=== PATIENT | female | born 1970 | race Hispanic/Latino ===

== ENCOUNTER 2023-01-18 11:52 | Observation (INO) | payer BC, OTHER ==
[~2023-01-18] VITALS: Ht 175.3 cm; Wt 105.7 kg
[2023-01-18 15:09] LABS: HEMATOCRIT 40.3 % (36-48); MEAN CORPUSCULAR HEMOGLOBIN 30.3 pg (27.0-33.0); MEAN CORPUSCULAR HGB CONC 33.7 g/dL (32.0-36.0); MEAN CORPUSCULAR VOLUME 89.8 fL (79-99); PLATELET COUNT (AUTO) 330 K/uL (130-400); RED BLOOD CELL COUNT(AUTO) 4.49 MIL/uL (4.00-5.50); RED CELL DISTRIBUTION WIDTH 13.4 % (11.0-15.5); WHITE BLOOD COUNT (AUTO) 6.4 K/uL (4.8-10.8)
[2023-01-18 15:38] LABS: ALBUMIN 3.6 g/dL (3.5-5.0); BILIRUBIN,DIRECT 4.4 mg/dL (0.0-0.3); BILIRUBIN,TOTAL 7.8 mg/dL (0.2-1.0); CREATININE 0.9 mg/dL (0.5-1.5); POTASSIUM 3.1 mmol/L (3.5-5.1); THYROID STIMULATING HORMONE 5.62 uIU/mL (0.36-3.74); TOTAL PROTEIN, SERUM 7.8 g/dL (6.0-8.3)
[2023-01-18 16:03] LABS: LYMPHOCYTES % (MANUAL) 38 % (22-44); MAN.DIFF COMMENT-IMPRESSION MANUAL DIFFERENTIAL; MONOCYTES % (MANUAL) 5 % (2-9); SEGMENTED NEUTROPHILS % 57 % (40-70); TOTAL CELLS COUNTED 100; WBC MORPHOLOGY SMUDGE CELLS 1+
[2023-01-18 16:04] LABS: PLATELET MORPHOLOGY COMMENT ADEQUATE
[2023-01-18] MEDS: 1/2 NS 1000ML 1,000 ML IV SCH (17:27)
[2023-01-18] MEDS ORDERED: GLUCAGON 1MG KIT 1 MG ML IM PRN (17:30)
[2023-01-18] MEDS ORDERED: DEXTROSE 50%-WATER 50 ML DISP.SYRIN IV PRN (17:30)
[2023-01-18 18:10] VITALS: BP 138/78; PULSE 88; RESP 17
[2023-01-18 19:33] VITALS: O2SAT 0
[2023-01-18] MEDS ORDERED: SIMV40TA59 PO (19:47)
[2023-01-18] MEDS ORDERED: METO-391 PO (19:47)
[2023-01-18] MEDS ORDERED: LEVO137C4 PO (19:47)
[2023-01-18] MEDS ORDERED: TELM20TA8 PO (19:47)
[2023-01-18] MEDS ORDERED: NPH,100V SQ (19:58)
[2023-01-18] MEDS ORDERED: INSU100V3 SQ (19:58)
[2023-01-18 20:24] VITALS: BP 154/78; PULSE 94; RESP 20
[2023-01-18] MEDS: INSULIN HUMULIN R 100 UNIT/ML 3ML SQ SCH ×2 (20:39→20:52)
[2023-01-18] MEDS: ATORVASTATIN 20 MG TABLET PO SCH (20:39)
[2023-01-18] MEDS: METOPROLOL SUCCINATE 50 MG TAB.SR.24H PO SCH (20:39)
[2023-01-18] MEDS ORDERED: AEC81 PO (20:54)
[2023-01-18] MEDS ORDERED: NON-FORMULARY MEDICATION 1 EACH (Simvastatin (Zocor) 40 MG) PO SCH (21:00)
[2023-01-18] MEDS: INSULIN NPH 100 UNIT/ML 3ML SQ SCH (21:17)
[2023-01-18 23:53] VITALS: BP 135/62; PULSE 87; RESP 18
[2023-01-19 03:54] LABS: BASOPHILS # (AUTO) 0.04 K/uL (0.00-0.20); BASOPHILS % (AUTO) 0.9 % (0.0-5.0); EOSINOPHILS # (AUTO) 0.24 K/uL (0.00-0.70); EOSINOPHILS % (AUTO) 5.4 % (0.0-8.0); HEMATOCRIT 34.7 % (36-48); IMMATURE GRANULOCYTE ABSOLUTE 0.02 K/uL (0-1); LYMPHOCYTES # (AUTO) 1.2 K/uL (1.0-4.8); LYMPHOCYTES % (AUTO) 27.4 % (21.0-51.0); MEAN CORPUSCULAR HEMOGLOBIN 30.3 pg (27.0-33.0); MEAN CORPUSCULAR VOLUME 89.2 fL (79-99); MONOCYTES # (AUTO) 0.4 K/uL (0.1-1.0); MONOCYTES % (AUTO) 8.6 % (3.0-13.0); NEUTROPHILS # (AUTO) 2.5 K/uL (1.8-7.7); NEUTROPHILS % (AUTO) 57.2 % (40.0-77.0); PLATELET COUNT (AUTO) 263 K/uL (130-400); RED BLOOD CELL COUNT(AUTO) 3.89 MIL/uL (4.00-5.50); RED CELL DISTRIBUTION WIDTH 13.9 % (11.0-15.5); WHITE BLOOD COUNT (AUTO) 4.4 K/uL (4.8-10.8)
[2023-01-19 04:14] LABS: ALBUMIN 2.8 g/dL (3.5-5.0); BILIRUBIN,DIRECT 1.6 mg/dL (0.0-0.3); BILIRUBIN,TOTAL 3.5 mg/dL (0.2-1.0); CREATININE 0.9 mg/dL (0.5-1.5); POTASSIUM 3.8 mmol/L (3.5-5.1); TOTAL PROTEIN, SERUM 6.3 g/dL (6.0-8.3)
[2023-01-19 04:44] VITALS: BP 106/60; PULSE 85; RESP 18
[2023-01-19] MEDS: 1/2 NS 1000ML 1,000 ML IV SCH (06:05)
[2023-01-19] MEDS: INSULIN HUMULIN R 100 UNIT/ML 3ML SQ SCH ×8 (06:36→19:54)
[2023-01-19] MEDS: INSULIN NPH 100 UNIT/ML 3ML SQ SCH ×2 (06:41→19:52)
[2023-01-19 08:00] VITALS: BP 138/80; PULSE 85; RESP 18; O2SAT 96
[2023-01-19] MEDS ORDERED: TELMISARTAN 10 MG PO SCH (09:00)
[2023-01-19] MEDS: LOSARTAN 25 MG TABLET PO SCH (09:00)
[2023-01-19] MEDS ORDERED: DEXTROSE 50%-WATER 50 ML DISP.SYRIN IV ONE (09:00)
[2023-01-19] MEDS: DEXTROSE 10%-WATER 1,000 ML IV SCH (09:12)
[2023-01-19 12:00] VITALS: BP 144/71; PULSE 82; RESP 18
[2023-01-19] MEDS ORDERED: GADOTERATE MEGLUMINE 10 MMOL/20 ML VIAL IV ONE (12:32)
[2023-01-19 16:00] VITALS: BP 140/76; PULSE 89; RESP 18
[2023-01-19 18:08] LABS: HEPATITIS A IGM ANTIBODY Non-Reactive (Nonreactive); HEPATITIS B CORE IGM ANTIBODY Non-Reactive (Negative); HEPATITIS B SURFACE ANTIGEN Non-Reactive (Nonreactive); HEPATITIS C ANTIBODY Non-Reactive (Nonreactive)
[2023-01-19] MEDS: ATORVASTATIN 20 MG TABLET PO SCH (19:51)
[2023-01-19] MEDS: METOPROLOL SUCCINATE 50 MG TAB.SR.24H PO SCH (19:51)
[2023-01-19 20:00] VITALS: BP 124/74; PULSE 75; RESP 17; O2SAT 97
[2023-01-19 23:53] VITALS: BP 126/65; PULSE 74; RESP 17
[2023-01-20 04:00] VITALS: BP 115/64; PULSE 86; RESP 17
[2023-01-20 04:49] LABS: MEAN CORPUSCULAR HGB CONC 33.2 g/dL (32.0-36.0); MEAN CORPUSCULAR VOLUME 93.2 fL (79-99); RED BLOOD CELL COUNT(AUTO) 3.97 MIL/uL (4.00-5.50); RED CELL DISTRIBUTION WIDTH 13.9 % (11.0-15.5); WHITE BLOOD COUNT (AUTO) 4.9 K/uL (4.8-10.8)
[2023-01-20 05:11] LABS: ALBUMIN 2.9 g/dL (3.5-5.0); BILIRUBIN,TOTAL 2.1 mg/dL (0.2-1.0); CREATININE 0.9 mg/dL (0.5-1.5); POTASSIUM 3.6 mmol/L (3.5-5.1); TOTAL PROTEIN, SERUM 6.4 g/dL (6.0-8.3)
[2023-01-20] MEDS: INSULIN HUMULIN R 100 UNIT/ML 3ML SQ SCH ×2 (06:16→06:21)
[2023-01-20] MEDS: DEXTROSE 10%-WATER 1,000 ML IV SCH (06:16)
[2023-01-20 08:00] VITALS: BP 123/66; PULSE 80; RESP 20; O2SAT 96
[2023-01-20] MEDS: LOSARTAN 25 MG TABLET PO SCH (09:35)
[2023-01-20] MEDS: INSULIN NPH 100 UNIT/ML 3ML SQ SCH (10:37)
== END 2023-01-20 11:30 | disposition home or self-care (01) ==
LOC: EDH 11:52 → EDHIP 12:57 → INTOOBSV 12:57 → 3AH 18:10
PROVIDERS: ADMIT Internal Medicine; ATTEND Internal Medicine
DX: R17 Unspecified jaundice (principal); E10.9 Type 1 diabetes mellitus without complications; E78.5 Hyperlipidemia, unspecified; E03.9 Hypothyroidism, unspecified; R94.5 Abnormal results of liver function studies; M54.50 Low back pain, unspecified; M54.6 Pain in thoracic spine; K80.20 Calculus of gallbladder without cholecystitis without obstruction; I10 Essential (primary) hypertension; R11.2 Nausea with vomiting, unspecified; Z79.4 Long term (current) use of insulin
CPT/HCPCS: 96372 ×3; 96361 ×4; 84443; 80076 ×2; 80053 ×3; 85025 ×2; 82948 ×11; 36415 ×3; 71045; 72070; 76700; 96374; 80074; 74183; 85027; G0378 ×43; J1815 ×7; A9575; S8037